=== PATIENT | female | born 2005 | race Caucasian/White ===

== ENCOUNTER 2023-12-19 16:07 | Inpatient (IN) ==
--- NOTE | 2023-12-19 16:11 | ED Triage Note ---
Date of Service December 19, 2023 Provider in Triage Author: Willard Canales History of Present Illness This patient was briefly evaluated while in triage. An abbreviated physical exam was performed. This patient is a 17-year-old Female who presents to the ED for evaluation of seen here 3 days ago for RLQ pain and found to have a distal right ureteral stone nausea and vomiting since being in the ED - throwing up anything she eats/drinks and medications still having intermittent right flank pain Physical Exam GENERAL: NAD CARDIOVASCULAR: RRR RESPIRATORY: CTA ABDOMEN: BS x 4. Nontender to palpation. Initial orders for labs and / or imaging were placed and patient was placed in the waiting area until a bed is available. Please see further documentation for the full ED course. MDM / Impression Impression Impression: Intractable nausea and vomiting, Hydronephrosis, right, Calculus, ureteral, Acute dehydration
[2023-12-19] MEDS: ONDANSETRON INJ 2 MG/ML 2 ML VIAL IV STA (16:18)
[2023-12-19] MEDS: SODIUM CHLORIDE 0.9% 1,000 ML IV SCH (16:18)
[2023-12-19 16:41] LABS: Basophils # (auto) 0.04 K/uL (0.00-0.20); Basophils % (auto) 0.3 %; Eosinophils # (auto) 0.03 K/uL (0.00-0.50); Eosinophils % (auto) 0.3 %; Hematocrit (blood only) 41.6 % (37.0-47.0); Hemoglobin 14.3 g/dl (12.0-16.0); Immature Granulocytes # (auto) 0.04 K/uL (0.01-0.20); Immature Granulocytes % (auto) 0.3 %; Lymphocytes # (auto) 1.09 K/uL (1.20-3.40); Lymphocytes % (auto) 9.3 %; Mean Corpuscular Hgb Conc 34.4 g/dL (32.0-36.0); Mean Corpuscular Volume 87.2 fL (80.0-100.0); Mean Platelet Volume 9.3 fL (9.4-12.4); Neutrophils # (auto) 9.83 K/uL (1.40-6.50); Neutrophils % (auto) 83.8 %; Platelet Count 270 K/uL (130-400); RDW Coefficient of Variation 11.7 % (11.5-14.5); RDW Standard Deviation 37.8 fL (36.4-46.3); Red Blood Count 4.77 M/uL (4.20-5.40); White Blood Count 11.73 K/ul (4.8-10.8)
[2023-12-19 16:46] LABS: Albumin Globulin Ratio 1.5 (0.9-2); Albumin Level 4.9 gm/dl (3.4-5.0); BUN Creatinine Ratio 15.7 (10-20); Bilirubin,Total 0.6 mg/dl (0.2-1.0); Calcium 9.9 mg/dl (8.6-10.3); Creatinine Clr Calc Pharmacy 56.8 ml/min; Globulin 3.2 gm/dl (2.5-4.0); Total Protein 8.1 gm/dl (6.0-8.3)
--- NOTE | 2023-12-19 17:09 | XRay Report ---
INDICATION: History of renal calculi. TECHNIQUE: 3 views of the abdomen. COMPARISON: No relevant priors. FINDINGS: No dilated loops of bowel. Evaluation for free air limited by supine technique. Multiple right renal calculi measuring up to 0.7 cm. Left kidney is obscured by bowel gas. No acute osseous or soft tissue abnormality. IMPRESSION: Multiple right renal calculi measuring up to 0.7 cm. Left kidney is obscured by bowel gas. Electronically signed by Alfredo Jarrett 12-19-2023 5:08 PM
[2023-12-19 17:13] LABS: Pregnancy Test, Serum Negative (Negative)
--- NOTE | 2023-12-19 17:49 | Ultrasound Report ---
INDICATION: Abdominal pain. History kidney stones/right ureteral stone. COMPARISON: Radiograph from the same day. TECHNIQUE: Real-time sonographic examination of the kidneys and urinary bladder was performed in longitudinal and transverse dimensions. FINDINGS: Kidneys: Right kidney measures 11.5 x 5 cm. Mild hydronephrosis. No shadowing renal calculus seen on this ultrasound. No solid mass or cyst. Left kidney measures 9.7 x 5 cm. Negative for solid renal mass, cyst, hydronephrosis or shadowing calculus. Bladder: No stones or mural masses. Right ureteral jet not visualized, left is seen. IMPRESSION: Mild right hydronephrosis. Electronically signed by Alfredo Jarrett 12-19-2023 5:49 PM
[2023-12-19] MEDS: KETOROLAC 30 MG/ML VIAL IV STA (18:00)
[2023-12-19 18:24] LABS: Appearance Urine Clear (Clear); Bacteria Urine Automated None Seen (None Seen); Bilirubin Urine Negative (Negative); Blood Urine Negative (Negative); Cast Urine Automated 0-2 /lpf (0-2); Color Urine Yellow; Glucose Urine UA Negative (Negative); Ketones Urine 4+ (Negative); Leukocyte Esterase Urine Negative (Negative); Nitrite Urine Negative (Negative); Protein Urine 1+ (Negative); RBC Urine Automated 0-2 /hpf (0-2); Specific Gravity Urine 1.034 (1.000-1.030); Urobilinogen Urine Negative (Negative); WBC Urine Automated 0-5 /hpf (0-5)
--- NOTE | 2023-12-19 19:46 | Emergency Department Note ---
Impression & Plan Intractable nausea and vomiting, Hydronephrosis, right, Calculus, ureteral, Acute dehydration ED Provider Note HISTORY OF PRESENT ILLNESS: Patient is a 17-year-old female presenting with right sided abdominal pain and right flank pain. Patient was diagnosed with a kidney stone on Tuesday. Reports that since being discharged she has been unable to tolerate anything by mouth. Reports that she has been vomiting up the medications that she was prescribed and she has been unable to keep down any fluids. She states her pain in her right lower quadrant and right flank are significantly worse. Denies any dysuria. Denies any measured fevers at home. She reports multiple episodes of vomiting and nausea but denies any diarrhea. ROS: as above PHYSICAL EXAM: Constitutional: Patient appears in no acute distress. HENT: Head: Normocephalic and atraumatic. Eyes: EOMI, PERRL Mouth/Throat: Mucous membranes moist. Neck: Trachea midline. Neck supple. Cardiovascular: RRR, No murmurs, rubs or gallops. Intact distal pulses. Pulmonary/Chest: No respiratory distress. Breath sounds clear and equal bilaterally. No wheezes or rales. Abdominal: Abdomen soft, no tenderness, rebound or guarding. Musculoskeletal: No edema, tenderness or deformity noted. Skin: Warm and dry. No rash, erythema, pallor or cyanosis Psychiatric: Appropriate mood and affect for situation. Neurological: Alert and keenly responsive. CN II-XII grossly intact, moving all extremities equally and fully. MDM: - Vitals signs stable - History obtained via patient. History as above. - Chronic conditions affecting care: None - Differential diagnoses include, but are not limited to: appendicitis; UTI; ureteral stone; pyelonephritis; electrolyte abnormality dehydration - Order placed for continuous cardiac monitoring. At this time, monitor showed rate of 76 bpm with normal sinus rhythm, per my interpretation. - External medical records reviewed. CT imaging obtained during patient's emergency department visit on 12/16/2023 was reviewed. Patient had a stone in her distal right ureter measuring about 4 mm in size. Was noted to have some right sided hydronephrosis and hydroureter secondary to the stone. - Patient unfortunately was out in the waiting room for a number of hours secondary to ER overcrowding. IV access and imaging was initiated while out in the waiting room via triage protocols. - Laboratory workup interpreted by myself showed leukocytosis (WBC 11.73) with neutrophil predominance; slight hyponatremia (Na 134); elevated anion gap (14); normal lipase; negative hCG - UA negative for infection. Noted to have ketonuria - KUB of the abdomen ordered through triage protocols showed multiple right renal calculi measuring up to 0.7 cm. Left kidney is obscured by bowel gas. - US renal showed right-sided hydronephrosis. - Patient given 1L NS, 30 mg IV toradol and 4 mg IV zofran. - Discussed results with patient and her mother via the phone. Mother is upset with the patient's long wait in the emergency department and is demanding urological consultation and surgery. Did discuss that given the late hour and the patient not meeting emergent criteria for surgery, urology can be consulted and they can deem if surgery is appropriate during the patient's admission for her dehydration. Offered admission for pain management and hydration, and patient and patient's mother are upset with this as well, but they state that the patient cannot go home. Mother is also upset that the patient was "not offered anything to drink in her 4 hours in the ER." I did discuss that the patient came in with the complaint of vomiting and abdominal pain and it is not standard of care to allow the patient to eat or drink when presenting with those complaints in case the patient does require emergent surgery. - Discussed case with urology PA promotions associate, Luc De Dios PA-C, who plans to come evaluate the patient. - Discussion was had with manager case management about patient's case and need for admission - Hospitalist consulted for admission - [facility] ASSESSMENT AND PLAN: Diagnosis: intractable nausea and vomiting; acute dehydration; right hydronephrosis; ureteral calculus Plan: admit Past Med/Surg History Problem List (Updated 12/19/23 @ 21:06 by Shannan Reed MD) Acute dehydration (Acute) Calculus, ureteral (Acute) Hydronephrosis, right (Acute) Intractable nausea and vomiting (Acute) Kidney stones (Acute) Social History Smoking Status: Never smoker Tobacco Type: E-cigarettes / Vaping Feels Safe at Home: Yes Allergies Allergies Allergy/AdvReac Type Severity Reaction Status Date / Time No Known Allergies Allergy Verified 12/16/23 02:55 Home Meds Previous Rx's Medication Instructions Recorded ondansetron 4 mg disintegrating 4 mg PO Q6H PRN nausea and 12/16/23 tablet vomiting #15 tabs oxycodone 5 mg tablet 5 mg PO Q6H PRN pain #10 tabs 12/16/23 tamsulosin 0.4 mg capsule (Flomax) 0.4 mg PO DAILY #10 caps 12/16/23 Results & Data (ED) Vital Signs Vital Signs - 24 hr 12/19/23 16:10 12/19/23 18:55 12/19/23 20:00 Temperature 36.8 C Temperature Source Temporal Artery Scan Pulse Rate 90 Pulse Rate [Right Finger] 71 76 Respiratory Rate 20 18 18 Respiratory Effort / Characteristics Non-Labored Spontaneous Non-Labored Non-Labored Spontaneous Respiratory Depth Normal Normal Normal Respiratory Pattern Regular Blood Pressure 119/87 Blood Pressure [Right Arm] 148/94 H Blood Pressure Mean 97 Blood Pressure Mean [Right Arm] 112 Blood Pressure Position Sitting Blood Pressure Position [Right Arm] Lying Pulse Oximetry 98 100 100 Oxygen Delivery Method Room Air Room Air Room Air Sepsis Recent Fever Within 48 Hours No Sepsis New/Unexplained Change in Mental Status N/A Sepsis Action Taken by Nursing No Action Required Laboratory Data 12/19/23 16:17 12/19/23 16:17 Lab Results 12/19/23 12/19/23 Range/Units 16:17 18:06 WBC 11.73 H (4.8-10.8) K/ul RBC 4.77 (4.20-5.40) M/uL Hgb 14.3 (12.0-16.0) g/dl Hct 41.6 (37.0-47.0) % MCV 87.2 (80.0-100.0) fL MCH 30.0 (25.0-34.0) pg MCHC 34.4 (32.0-36.0) g/dL RDW Std Deviation 37.8 (36.4-46.3) fL RDW Coeff of Abdoulaye 11.7 (11.5-14.5) % Plt Count 270 (130-400) K/uL MPV 9.3 L (9.4-12.4) fL Immature Gran % (Auto) 0.3 % Neut % (Auto) 83.8 % Lymph % (Auto) 9.3 % [place] % (Auto) 6.0 % Eos % (Auto) 0.3 % Baso % (Auto) 0.3 % Neut # (Auto) 9.83 H (1.40-6.50) K/uL Lymph # (Auto) 1.09 L (1.20-3.40) K/uL [place] # (Auto) 0.70 H (0.11-0.59) K/uL Eos # (Auto) 0.03 (0.00-0.50) K/uL Baso # (Auto) 0.04 (0.00-0.20) K/uL Immature Gran # (Auto) 0.04 (0.01-0.20) K/uL Sodium 134 L (136-145) mmol/L Potassium 4.0 (3.5-5.1) mmol/L Chloride 98 (98-107) mmol/L Carbon Dioxide 22 (21-32) mmol/L Anion Gap 14 H (3-11) BUN 18 (6-23) mg/dl Creatinine 1.15 (0.6-1.2) mg/dl Est Cr Clr Drug Dosing 56.8 ml/min eGFR 70.38 BUN/Creatinine Ratio 15.7 (10-20) Glucose 98 (70-99(Fasting)) mg/dl Calcium 9.9 (8.6-10.3) mg/dl Total Bilirubin 0.6 (0.2-1.0) mg/dl AST 11 L (13-39) U/L ALT 4 L (7-52) U/L Alkaline Phosphatase 45 (34-104) U/L Total Protein 8.1 (6.0-8.3) gm/dl Albumin 4.9 (3.4-5.0) gm/dl Globulin 3.2 (2.5-4.0) gm/dl Albumin/Globulin Ratio 1.5 (0.9-2) Lipase 14 (11-82) U/L HCG, Qual Negative (Negative) Urine Color Yellow Urine Appearance Clear (Clear) Urine pH 6.0 (4.5-7.5) Ur Specific [place] 1.034 H (1.000-1.030) Urine Protein 1+ H (Negative) Urine Glucose (UA) Negative (Negative) Urine Ketones 4+ H (Negative) Urine Blood Negative (Negative) Urine Nitrite Negative (Negative) Urine Bilirubin Negative (Negative) Urine Urobilinogen Negative (Negative) Ur Leukocyte Esterase Negative (Negative) Urine WBC (Auto) 0-5 (0-5) /hpf Urine RBC (Auto) 0-2 (0-2) /hpf U Hyaline Cast (Auto) 0-2 (0-2) /lpf U Epithel Cells (Auto) 3-5 H (0-2) /hpf Urine Bacteria (Auto) None Seen (None Seen) Administered Medications Discontinued Medications Sodium Chloride (Nss) 1,000 mls @ 999 mls/hr IV .Q1H1M CRESENCIO Stop: 12/19/23 17:12 Last Infusion: 12/19/23 17:57 Dose: Infused Documented By: Admin: 12/19/23 16:18 Dose: 999 mls/hr Documented By: YENIFER Ketorolac Tromethamine (Ketorolac 30 Mg/Ml Vial) 30 mg IV NOW STA Stop: 12/19/23 17:24 Last Admin: 12/19/23 18:00 Dose: 30 mg Documented By: CARLITOS Ondansetron HCl (Ondansetron Inj 2 Mg/Ml 2 Ml Vial) 4 mg IV NOW STA Stop: 12/19/23 16:13 Last Admin: 12/19/23 16:18 Dose: 4 mg Documented By: YENIFER Imaging Data Radiologist's Impression: KUB X-Ray 12/19/23 16:11 INDICATION: History of renal calculi. TECHNIQUE: 3 views of the abdomen. COMPARISON: No relevant priors. FINDINGS: No dilated loops of bowel. Evaluation for free air limited by supine technique. Multiple right renal calculi measuring up to 0.7 cm. Left kidney is obscured by bowel gas. No acute osseous or soft tissue abnormality. IMPRESSION: Multiple right renal calculi measuring up to 0.7 cm. Left kidney is obscured by bowel gas. Electronically signed by Alfredo Jarrett 12-19-2023 5:08 PM Renal Ultrasound 12/19/23 16:11 INDICATION: Abdominal pain. History kidney stones/right ureteral stone. COMPARISON: Radiograph from the same day. TECHNIQUE: Real-time sonographic examination of the kidneys and urinary bladder was performed in longitudinal and transverse dimensions. FINDINGS: Kidneys: Right kidney measures 11.5 x 5 cm. Mild hydronephrosis. No shadowing renal calculus seen on this ultrasound. No solid mass or cyst. Left kidney measures 9.7 x 5 cm. Negative for solid renal mass, cyst, hydronephrosis or shadowing calculus. Bladder: No stones or mural masses. Right ureteral jet not visualized, left is seen. IMPRESSION: Mild right hydronephrosis. Electronically signed by Alfredo Jarrett 12-19-2023 5:49 PM Discharge Plan Visit Data Chief Complaint: Vomiting Stated Complaint: VOMITING, NOT EATEN, HYDRATED ED Provider: Shannan Reed Discharge Problem: Intractable nausea and vomiting, Hydronephrosis, right, Calculus, ureteral, Acute dehydration Forms Stand Alone Forms: [facility] Prescriptions Prescriptions: No Action tamsulosin [Flomax] 0.4 mg capsule 0.4 mg PO DAILY Qty: 10 0RF ondansetron 4 mg tablet,disintegrating 4 mg PO Q6H PRN (Reason: nausea and vomiting) Qty: 15 0RF oxycodone 5 mg tablet 5 mg PO Q6H PRN (Reason: pain) Qty: 10 0RF Rx Instructions: Initial Treatment Referrals Referrals: [facility] [Primary Care Provider] -
--- NOTE | 2023-12-19 21:34 | Urology Consultation ---
Date of Consultation December 19, 2023 Assessment & Plan (1) Kidney stones: I discussed with the treating emergency room physician the patient is being admitted on the hospitalist service. From a urologic perspective we recommend the following: I discussed with the patient that by CT scan she has a 4 mm kidney stone which has a high likelihood of passing on its own Will provide her with analgesics Will provide her with antiemetics Would recommend continuing Flomax for expulsive therapy Hydrate the patient as able Feel be acceptable for patient have clear liquids this evening but she should be made n.p.o. after midnight tonight She will be reevaluated by our urology dayshift team on 12/20/2023 and a determination was made if she would require cystoscopic intervention. I did discuss with the patient that if she does undergo cystoscopy the exact procedure will be dependent on the urologist performed procedure and may include simply placing a ureteral stent, laser lithotripsy, or basket extraction of kidney stonesagain I did say that this would be dependent on the urologist performing the procedure I would also depend on factors such as the size, shape, and location of the kidney stone At the present time the patient is normotensive not tachycardic or fever and therefore I feel conservative measures are warranted at this time Additional recommendations be forthcoming based on her clinical course as unfolds Per the patient's request I did contact her mother Kandi at [phone] and updated her on her daughter's condition History of Present Illness Reason for Consultation: Nephrolithiasis History of Present Illness This is a 17-year-old female who presented to the emergency department secondary to right flank pain. Patient notes that her pain initially began on 12/16/2023 so she presented to the emergency department. During this visit to the emergency department the patient had labs and imaging. A CT scan of the abdomen pelvis showed the patient had a 4 mm kidney stone in the right lower ureter resulting in some right hydronephrosis. Labs at that time included CBC were white blood cell count was elevated 15.0. Hemoglobin was normal. Her platelet count was normal. Chemistry profile showed sodium was 138 with a potassium of 3.1. Her BUN and creatinine were both normal. Urinalysis showed trace leukocyte Estrace but was otherwise not indicative of infection. The patient was prescribed antiemetics, analgesics, as well as Flomax for expulsive therapy and was discharged home. Patient notes that since being discharged home she has had intermittent right flank pain with some radiation to her abdomen. She has had associated nausea and vomiting. She has been unable to keep any of her medications down therefore her pain medication she feels has been ineffective. She denies any fevers, shakes, or chills. She denies any dysuria or hematuria but does note that her urinary amount is less than usual. Because of her ongoing symptoms she presented to the emergency department. Today in the emergency department she had labs and imaging which I independent reviewed. Renal ultrasound showed mild right hydronephrosis. She did have a KUB that showed a 0.7 cm right sided kidney stone. Labs include a CBC were white blood cell count was elevated 11.7. Hemoglobin and hematocrit as well as the platelet count were normal. Chemistry profile showed sodium was 134 with a normal potassium. BUN and creatinine were both normal. The test was noted to be negative. A urinalysis was not indicative of infection. At the time of my interview she was resting comfortably in bed and she was in no distress. Concerning past medical history she denies medical problems Concerning past surgical history she does not report any surgical problems Concerning social history she says she does not smoke Allergies Allergy/AdvReac Type Severity Reaction Status Date / Time No Known Allergies Allergy Verified 12/16/23 02:55 Home Medications Medication Instructions Recorded Confirmed Type ondansetron 4 mg disintegrating 4 mg PO Q6H PRN nausea and 12/16/23 Rx tablet vomiting #15 tabs oxycodone 5 mg tablet 5 mg PO Q6H PRN pain #10 tabs 12/16/23 Rx tamsulosin 0.4 mg capsule (Flomax) 0.4 mg PO DAILY #10 caps 12/16/23 Rx Patient History Social History Smoking Status: Never smoker Tobacco Type: E-cigarettes / Vaping Feels Safe at Home: Yes Review of Systems Review of Systems: All systems reviewed & are unremarkable except as noted in HPI & below Physical Exam Constitutional: WD/WN, vitals as above Eyes: no conjunctival abnormality ENMT: Ears: no hearing impairment and no external ear abnormality Mouth: no oropharynx abnormality Neck: trachea midline Respiratory: normal respiratory effort; no respiratory distress and no labored breathing Cardiovascular: Rate/Rhythm: regular rate and regular rhythm Gastrointestinal (Abdomen): Abdomen is soft and nondistended. It is nonrigid. There is no pain with palpation. There is no rebound tenderness or guarding. Musculoskeletal: No calf tenderness Skin: no rashes Neurologic: moves all extremities Psychiatric: A+Ox3, euthymic affect Results & Data Vital Signs (Past 12 Hours) Vital Signs Temp Pulse Pulse Resp BP BP Pulse Ox 12/19/23 20:00 76 18 100 12/19/23 18:55 71 18 148/94 H 100 12/19/23 16:10 36.8 C 90 20 119/87 98 O2 Del Method 12/19/23 20:00 Room Air 12/19/23 18:55 Room Air 12/19/23 16:10 Room Air PG Care Time/CCT Total # of Minutes Spent Total Time Spent with Patient: Total time spent is greater than 50% in coordination of care (as documented) at patient's floor/unit and/or counseling patient: Coding Level of Care Code 24277 IN/OBS CONSULT LVL 5,80M Diagnoses Kidney stones N20.0
--- NOTE | 2023-12-19 22:28 | History & Physical Report ---
Date of Service December 19, 2023 Assessment & Plan (1) Calculus, ureteral: Plan: 17yo female with recently diagnosed renal stone, ongoing nausea with inability to take her PO medications returns with ongoing flank pain. Noted to have multiple renal calculi measuring up to 0.7cm. -Admit to medical -Maintain NPO -Pain management with Tylenol, Morphine PRN -Flomax 0.4mg po daily -Zofran PRN -LR at 125mL/hr x 2 liters -Urology Consultation appreciated History of Present Illness Chief Complaint: flank pain Primary Care Provider: [facility] Abena Anthony is a 17yo female with no significant past medical surgery presenting with right flank pain. Patient was seen in the ER on 12/16/23 and f ound to have a 4mm right lower ureteral calculus. She was discharged from the ER with instruction to take Ibuprofen or Tylenol PRN as well as Oxycodone and Flomax. Patient has had significant nausea since returning home from the ER with multiple episodes of vomiting. She has been unable to take her oral medications. Patient with ongoing right flank pain as well as ongoing nausea and chills. She also reports some decreased UOP. Allergies Allergy/AdvReac Type Severity Reaction Status Date / Time No Known Allergies Allergy Verified 12/16/23 02:55 Home Medications Medication Instructions Recorded Confirmed Type ondansetron 4 mg disintegrating 4 mg PO Q6H PRN nausea and 12/16/23 Rx tablet vomiting #15 tabs oxycodone 5 mg tablet 5 mg PO Q6H PRN pain #10 tabs 12/16/23 Rx tamsulosin 0.4 mg capsule (Flomax) 0.4 mg PO DAILY #10 caps 12/16/23 Rx Past Med/Surg History Problem List Acute dehydration (Acute) Calculus, ureteral (Acute) Hydronephrosis, right (Acute) Intractable nausea and vomiting (Acute) Kidney stones (Acute) Social History Smoking Status: Never smoker Tobacco Type: E-cigarettes / Vaping Second Hand Exposure: No; Do You Dip or Chew Tobacco: No; Hx Alcohol Use: Yes Alcohol type: hard liquor Hx Substance Use: No Preferred Language: Maltese Communication Ability: Effective Vocational Technical Education Director Required: No Beliefs That Will Affect Care: None Current Living Situation: Parent Current Living Situation Comment: [employer]. Lives in school when open. Other Information That Helps Us Care for You: No Feels Safe at Home: Yes Safety Concerns: Feels Safe At This Time Assistive Devices: None Review of Systems Review of Systems: All systems reviewed & are unremarkable except as noted in HPI & below Physical Exam Physical Exam: General: patient resting comfortably, NAD, non-toxic in appearance, AA&O x 4 Skin: warm, dry, intact, no rashes or lesions HEENT: NC/AT, PERRL, EOMI, anicteric sclera, conjunctiva without injection, external ear normal to inspection and nontender, nares patent, moist mucus membranes, dentition intact, no oropharyngeal lesions, neck supple, trachea midline, no LAD, no thyromegaly, no JVD Heart: +S1/S2, regular, no m/r/g Lungs: equal air entry bilaterally, no rales/rhonchi/wheezes Abd: +BS, soft, NT/ND, no masses/organomegaly/ascites, right flank pain/CVA tenderness reported from ER - not retensted Ext: warm, 2+ pulses in UE/LE bilaterally, no clubbing/cyanosis or edema Neuro: nonfocal, patient AA&O x 4, speech intact, no facial droop, moving all extremities on command with equal strength 5/5 Results & Data Results & Data Vital Signs (Past 12 Hours) Vital Signs Temp Pulse Pulse Resp BP BP Pulse Ox 12/19/23 20:00 76 18 100 12/19/23 18:55 71 18 148/94 H 100 12/19/23 16:10 36.8 C 90 20 119/87 98 O2 Del Method 12/19/23 20:00 Room Air 12/19/23 18:55 Room Air 12/19/23 16:10 Room Air Laboratory Results Laboratory Results WBC 11.73 K/ul (4.8-10.8) H 12/19/23 16:17 RBC 4.77 M/uL (4.20-5.40) 12/19/23 16:17 Hgb 14.3 g/dl (12.0-16.0) 12/19/23 16:17 Hct 41.6 % (37.0-47.0) 12/19/23 16:17 MCV 87.2 fL (80.0-100.0) 12/19/23 16:17 MCH 30.0 pg (25.0-34.0) 12/19/23 16:17 MCHC 34.4 g/dL (32.0-36.0) 12/19/23 16:17 RDW Std Deviation 37.8 fL (36.4-46.3) 12/19/23 16:17 RDW Coeff of Abdoulaye 11.7 % (11.5-14.5) 12/19/23 16:17 Plt Count 270 K/uL (130-400) 12/19/23 16:17 MPV 9.3 fL (9.4-12.4) L 12/19/23 16:17 Immature Gran % (Auto) 0.3 % 12/19/23 16:17 Neut % (Auto) 83.8 % 12/19/23 16:17 Lymph % (Auto) 9.3 % 12/19/23 16:17 [place] % (Auto) 6.0 % 12/19/23 16:17 Eos % (Auto) 0.3 % 12/19/23 16:17 Baso % (Auto) 0.3 % 12/19/23 16:17 Neut # (Auto) 9.83 K/uL (1.40-6.50) H 12/19/23 16:17 Lymph # (Auto) 1.09 K/uL (1.20-3.40) L 12/19/23 16:17 [place] # (Auto) 0.70 K/uL (0.11-0.59) H 12/19/23 16:17 Eos # (Auto) 0.03 K/uL (0.00-0.50) 12/19/23 16:17 Baso # (Auto) 0.04 K/uL (0.00-0.20) 12/19/23 16:17 Immature Gran # (Auto) 0.04 K/uL (0.01-0.20) 12/19/23 16:17 Sodium 134 mmol/L (136-145) L 12/19/23 16:17 Potassium 4.0 mmol/L (3.5-5.1) 12/19/23 16:17 Chloride 98 mmol/L (98-107) 12/19/23 16:17 Carbon Dioxide 22 mmol/L (21-32) 12/19/23 16:17 Anion Gap 14 (3-11) H 12/19/23 16:17 BUN 18 mg/dl (6-23) 12/19/23 16:17 Creatinine 1.15 mg/dl (0.6-1.2) 12/19/23 16:17 Est Cr Clr Drug Dosing 56.8 ml/min 12/19/23 16:17 eGFR 70.38 12/19/23 16:17 BUN/Creatinine Ratio 15.7 (10-20) 12/19/23 16:17 Glucose 98 mg/dl (70-99(Fasting)) 12/19/23 16:17 Calcium 9.9 mg/dl (8.6-10.3) 12/19/23 16:17 Total Bilirubin 0.6 mg/dl (0.2-1.0) 12/19/23 16:17 AST 11 U/L (13-39) L 12/19/23 16:17 ALT 4 U/L (7-52) L 12/19/23 16:17 Alkaline Phosphatase 45 U/L (34-104) 12/19/23 16:17 Total Protein 8.1 gm/dl (6.0-8.3) 12/19/23 16:17 Albumin 4.9 gm/dl (3.4-5.0) 12/19/23 16:17 Globulin 3.2 gm/dl (2.5-4.0) 12/19/23 16:17 Albumin/Globulin Ratio 1.5 (0.9-2) 12/19/23 16:17 Lipase 14 U/L (11-82) 12/19/23 16:17 HCG, Qual Negative (Negative) 12/19/23 16:17 Urine Color Yellow 12/19/23 18:06 Urine Appearance Clear (Clear) 12/19/23 18:06 Urine pH 6.0 (4.5-7.5) 12/19/23 18:06 Ur Specific [place] 1.034 (1.000-1.030) H 12/19/23 18:06 Urine Protein 1+ (Negative) H 12/19/23 18:06 Urine Glucose (UA) Negative (Negative) 12/19/23 18:06 Urine Ketones 4+ (Negative) H 12/19/23 18:06 Urine Blood Negative (Negative) 12/19/23 18:06 Urine Nitrite Negative (Negative) 12/19/23 18:06 Urine Bilirubin Negative (Negative) 12/19/23 18:06 Urine Urobilinogen Negative (Negative) 12/19/23 18:06 Ur Leukocyte Esterase Negative (Negative) 12/19/23 18:06 Urine WBC (Auto) 0-5 /hpf (0-5) 12/19/23 18:06 Urine RBC (Auto) 0-2 /hpf (0-2) 12/19/23 18:06 U Hyaline Cast (Auto) 0-2 /lpf (0-2) 12/19/23 18:06 U Epithel Cells (Auto) 3-5 /hpf (0-2) H 12/19/23 18:06 Urine Bacteria (Auto) None Seen (None Seen) 12/19/23 18:06 Impressions KUB X-Ray 12/19/23 16:11 INDICATION: History of renal calculi. TECHNIQUE: 3 views of the abdomen. COMPARISON: No relevant priors. FINDINGS: No dilated loops of bowel. Evaluation for free air limited by supine technique. Multiple right renal calculi measuring up to 0.7 cm. Left kidney is obscured by bowel gas. No acute osseous or soft tissue abnormality. IMPRESSION: Multiple right renal calculi measuring up to 0.7 cm. Left kidney is obscured by bowel gas. Electronically signed by Alfredo Jarrett 12-19-2023 5:08 PM Renal Ultrasound 12/19/23 16:11 INDICATION: Abdominal pain. History kidney stones/right ureteral stone. COMPARISON: Radiograph from the same day. TECHNIQUE: Real-time sonographic examination of the kidneys and urinary bladder was performed in longitudinal and transverse dimensions. FINDINGS: Kidneys: Right kidney measures 11.5 x 5 cm. Mild hydronephrosis. No shadowing renal calculus seen on this ultrasound. No solid mass or cyst. Left kidney measures 9.7 x 5 cm. Negative for solid renal mass, cyst, hydronephrosis or shadowing calculus. Bladder: No stones or mural masses. Right ureteral jet not visualized, left is seen. IMPRESSION: Mild right hydronephrosis. Electronically signed by Alfredo Jarrett 12-19-2023 5:49 PM PG Care Time/CCT Total # of Minutes Spent Total Time Spent with Patient: Total time spent is greater than 50% in coordination of care (as documented) at patient's floor/unit and/or counseling patient: Coding Level of Care Code 53127 INT INP/OBS CARE 2/55MIN Diagnoses Calculus, ureteral N20.1
[2023-12-20] MEDS ORDERED: ONDANSETRON INJ 2 MG/ML 2 ML VIAL IV PRN (00:23)
[2023-12-20] MEDS ORDERED: MoRPHine SULFATE 4 MG/ML 1 ML CARP\\VIAL IV PRN (00:23)
[2023-12-20] MEDS: LACTATED RINGER'S 1,000 ML IV SCH (01:10)
[2023-12-20] MEDS ORDERED: ACETAMINOPHEN 325 MG TAB PO PRN (04:03)
[2023-12-20] MEDS: MoRPHine SULFATE 2 MG/ML CARP IV PRN (07:39)
[2023-12-20 07:55] LABS: Hematocrit (blood only) 31.9 % (37.0-47.0); Hemoglobin 11.1 g/dl (12.0-16.0); Mean Corpuscular Hemoglobin 30.7 pg (25.0-34.0); Mean Corpuscular Hgb Conc 34.8 g/dL (32.0-36.0); Mean Corpuscular Volume 88.1 fL (80.0-100.0); Mean Platelet Volume 9.4 fL (9.4-12.4); Platelet Count 188 K/uL (130-400); RDW Coefficient of Variation 11.8 % (11.5-14.5); RDW Standard Deviation 37.9 fL (36.4-46.3); Red Blood Count 3.62 M/uL (4.20-5.40); White Blood Count 6.97 K/ul (4.8-10.8)
[2023-12-20 08:11] LABS: BUN Creatinine Ratio 14.2 (10-20); Calcium 8.7 mg/dl (8.6-10.3); Creatinine Clr Calc Pharmacy 60.9 ml/min; Potassium 3.8 mmol/L (3.5-5.1)
[2023-12-20] MEDS: TAMSULOSIN HCL 0.4 MG CAP PO SCH (08:51)
--- NOTE | 2023-12-20 10:35 | Urology Progress Note ---
Date of Service December 20, 2023 Assessment & Plan (1) Calculus, ureteral: (2) Hydronephrosis, right: Plan 17 yo female admitted with severe pain secondary to an obstructing 4mm right ureteral stone - Still with right flank pain this morning, denies noticeable stone passage - Afebrile with stable vitals - Labs -WBC 6.97, hemoglobin 11.1, creatinine 1.06 - UA not suggestive of infection - We discussed options for acute stone management. Discussed cystoscopy, stent placement, possible stone treatment. Ureteral stents were discussed as well as postoperative issues and pain management. She is aware a second procedure may be needed. Expected clinical course reviewed. Risk and benefits were discussed. All questions were answered. - We also discussed option for continued trial of passage with max expulsion therapy. Stone passage rates given size and location were reviewed. - She would like to proceed with cystoscopy, right retrograde pyelogram, right ureteral stent placement, possible ureteroscopy, laser lithotripsy/stone treatment depending on findings. - Risks and benefits to be reviewed with patient by Dr. Wyatt - Keep NPO - Will cover with IV Ancef preoperatively - Urology will follow Admission and Anticipated Discharge Date Admission Date: December 19, 2023 Subjective Pt seen at bedside this AM Awake and resting in bed No acute distress Denies noticeable stone passage Still with right sided pain, managing with medication Denies f/c/n/v Has been NPO Review of Systems Constitutional: as per Subjective / HPI Genitourinary: as per Subjective / HPI Physical Exam Constitutional: no acute distress Respiratory: no respiratory distress and no labored breathing Neurologic: moves all extremities and awake Psychiatric: A+Ox3, euthymic affect Results & Data Vital Signs (Past 12 Hours) Vital Signs Temp Pulse Pulse Resp BP BP Pulse Ox 12/20/23 07:35 36.7 C 66 14 101/70 99 12/20/23 00:00 36.8 C 66 18 113/68 99 12/20/23 00:00 36.8 C 66 18 113/68 99 12/19/23 23:47 37.0 C 12/19/23 22:00 70 18 98/53 L 99 O2 Del Method 12/20/23 07:35 Room Air 12/20/23 00:00 Room Air 12/20/23 00:00 Room Air 12/19/23 23:47 Room Air 12/19/23 22:00 Room Air PG Care Time/CCT Total # of Minutes Spent Total Time Spent with Patient: Total time spent is greater than 50% in coordination of care (as documented) at patient's floor/unit and/or counseling patient: Coding Level of Care Code 39621 SUB INP/OBS CARE 2/35MIN Diagnoses Calculus, ureteral N20.1 Hydronephrosis, right N13.30
[2023-12-20] MEDS: ceFAZolin 2,000 MG/15 ML IV PUSH IV ONE (14:40)
[2023-12-20] MEDS ORDERED: ePHEDrine sulfate 50 MG/ML AMP IV PRN (14:50)
[2023-12-20] MEDS ORDERED: HYDROmorphone INJ 2 MG/ML SYR/VIAL IV PRN (14:50)
[2023-12-20] MEDS ORDERED: ATROPINE SULFATE 0.1 MG/ML 10ML SYR IV PRN (14:50)
--- NOTE | 2023-12-20 14:50 | Anesthesiology Consultation ---
Date of Service December 20, 2023 Assessment & Plan Chart Review Chart Review: Acceptable Risk for Surgery Consults Requested none ASA ASA2 Proposed Anesthesia Anesthesia Type: General Risk / Benefits Reviewed With: PT / POA / Parent / Guardian, Accepts Plan and Informed Consent Obtained History Surgery Operation Date: 12/20/23 09:30 Proposed Procedures p Cystoscopy, Right Retrograde Pyelogram, Right Stent Placement, Possible Ureteroscopy, Laser Lithotripsy - Toribio Wyatt MD Height/Weight Height: 5 ft 4 in Weight: 45.2 kg Allergies Allergy/AdvReac Type Severity Reaction Status Date / Time No Known Allergies Allergy Verified 12/16/23 02:55 Medications Home Medications Medication Instructions Recorded Confirmed Last Taken ondansetron 4 mg disintegrating 4 mg PO Q6H PRN nausea and 12/16/23 Unknown tablet vomiting #15 tabs oxycodone 5 mg tablet 5 mg PO Q6H PRN pain #10 tabs 12/16/23 Unknown tamsulosin 0.4 mg capsule (Flomax) 0.4 mg PO DAILY #10 caps 12/16/23 Unknown Active Medications Generic Name Dose Route Start Last Admin Trade Name Freq PRN Reason Stop Dose Admin Lactated Ringer's 1,000 mls @ 125 mls/hr 12/20/23 00:23 12/20/23 08:51 Lr IV 12/20/23 16:22 125 mls/hr .Q8H CRESENCIO Administration Morphine Sulfate 2 mg 12/20/23 00:23 12/20/23 13:59 Morphine Sulfate 2 Mg/Ml Carp IV 01/03/24 00:22 2 mg Q3H PRN Administration Pain (1,2,3,4,5) & Pre PT Tamsulosin HCl 0.4 mg 12/20/23 09:00 12/20/23 08:51 Tamsulosin Hcl 0.4 Mg Cap PO 01/19/24 08:59 0.4 mg DAILY CRESENCIO Administration NPO Date Last Intake of Fluids: 12/19/23 Time Last Intake of Fluids: 23:45 Date Last Intake of Solids: 12/18/23 Time Last Intake of Solids: 12:00 Exercise / Class Metabolic Activity II 4-5 Yardwork/Stairs/Walk up hill Past Anesthesia History No Family Hx of Anesthesia Complications History of PONV No Hx of PONV Social History Smoking Status: Never smoker Do You Dip or Chew Tobacco: No Hx Alcohol Use: Yes Alcohol type: hard liquor alcohol intake frequency: holidays/special occasions only Hx Substance Use: No Review of Systems Constitutional: as per Subjective / HPI Eyes: as per Subjective / HPI Ear, Nose, Mouth, Throat: as per Subjective / HPI Respiratory: as per Subjective / HPI Cardiovascular: as per Subjective / HPI Gastrointestinal: as per Subjective / HPI Genitourinary (Female): as per Subjective / HPI Musculoskeletal: as per Subjective / HPI Integumentary: as per Subjective / HPI Neurologic: as per Subjective / HPI Psychiatric: as per Subjective / HPI Endocrine: as per Subjective / HPI Hematologic / Lymphatic: as per Subjective / HPI Allergy / Immunological: as per Subjective / HPI Physical Exam Vital Signs Last Vital Signs Temp 36.6 C 12/20/23 14:30 Pulse 76 12/20/23 14:30 Resp 16 12/20/23 14:30 BP 119/80 12/20/23 14:30 Pulse Ox 100 12/20/23 14:30 O2 Del Method Room Air 12/20/23 14:30 Constitutional no acute distress ENMT Mouth: no dentition abnormality Thyromental Distance: > or= 3.5 Finger Breadths Mallampati Class: I Neck normal visual inspection and trachea midline Respiratory normal respiratory effort Cardiovascular Rate/Rhythm: regular rate Extremities: no edema Chest (Breasts) Chest: no pacemaker Musculoskeletal Extremities: extremities normal to inspection Neurologic moves all extremities Psychiatric Orientation: alert and oriented x 3 Testing Laboratory Results 12/20/23 07:20 12/20/23 07:20 Urine Color Yellow 12/19/23 18:06 Urine Appearance Clear (Clear) 12/19/23 18:06 Urine pH 6.0 (4.5-7.5) 12/19/23 18:06 Ur Specific [place] 1.034 (1.000-1.030) H 12/19/23 18:06 Urine Protein 1+ (Negative) H 12/19/23 18:06 Urine Glucose (UA) Negative (Negative) 12/19/23 18:06 Urine Ketones 4+ (Negative) H 12/19/23 18:06 Urine Nitrite Negative (Negative) 12/19/23 18:06 Ur Leukocyte Esterase Negative (Negative) 12/19/23 18:06 Urine WBC (Auto) 0-5 /hpf (0-5) 12/19/23 18:06 Urine RBC (Auto) 0-2 /hpf (0-2) 12/19/23 18:06 U Hyaline Cast (Auto) 0-2 /lpf (0-2) 12/19/23 18:06 U Epithel Cells (Auto) 3-5 /hpf (0-2) H 12/19/23 18:06 Urine Bacteria (Auto) None Seen (None Seen) 12/19/23 18:06
[2023-12-20] MEDS: SCOPOLAMINE 1 MG/72 HR TDSY PATCH TD SCH (14:55)
[2023-12-20] MEDS ORDERED: fentaNYL citrate PF 100 MCG/2 ML VIAL ONE (15:18)
[2023-12-20] MEDS ORDERED: MIDAZOLAM HCL 1 MG/ML 2ML VIAL ONE (15:18)
[2023-12-20] MEDS ORDERED: LIDOCAINE 2% 2 ML VIAL/AMP(20MG/ML) INFIL ONE ×2 (15:18)
[2023-12-20] MEDS ORDERED: PROPOFOL IV EMULSION 10 MG/ML 20 ML VIAL IV ONE (15:18)
--- NOTE | 2023-12-20 15:39 | History & Physical Bridge Note ---
Date of Service December 20, 2023 History & Physical Bridge Note I have examined the patient, reviewed the History & Physical and in the interval since the performance of the History & Physical I have noted the following changes of clinical significance: no changes noted
[2023-12-20] MEDS: ceFAZolin 2000MG 2,000 MG/15 ML SYR IV ONE (15:51)
[2023-12-20] MEDS ORDERED: KETOROLAC 30 MG/ML VIAL ONE (16:13)
--- NOTE | 2023-12-20 16:38 | Operative Report ---
PG Post Operative Report Pre & Post Diagnosis Operation Date: 12/20/23 09:30 Pre-Op Diagnosis: (1) Calculus, ureteral (2) Hydronephrosis, right Post-Op Diagnosis: (1) Calculus, ureteral (2) Hydronephrosis, right I identified the patient and participated in the time-out.: Yes Procedure Operation Date: 12/20/23 09:30 Actual Procedures p Cystoscopy, Right Stent Placement, Right Ureteroscopy with Basket Stone Extraction(Not Applicable) - Toribio Wyatt MD Surgeon Toribio Wyatt MD Consulting Technical Manager none Estimated Blood Loss 0 Findings Consistent with Post-Op Diagnosis Specimens Stone for chemical analysis Description of Procedure The patient was identified in the preoperative holding area, appropriate informed consents were reviewed and completed and the patient was transferred to the operative suite. Upon arrival, appropriate antibiotics and anesthesia were administered and the patient was placed in dorsal lithotomy position and prepped and draped in sterile fashion. To be in the case I passed a 21 Maldivian cystoscope with 30 degree lens and visual reducing machine operator peer inspection revealed a healthy-appearing bladder but there was some landing of the distal right ureter with mild erythema. Both orifices were in orthotopic positions. The remainder the bladder was unremarkable. I turned my attention to the right UO and cannulated with a sensor wire. Immediately after the wire past the stone there was a discharge of old urine. Wire advanced the kidney without difficulty and I then advanced a semirigid ureteroscope into the ureter alongside the wire. I encountered a stone approximately 4 to 5 mm above the UO. This was around the stone and after turning it to position I was able to grasp with the basket and extracted without difficulty. I did advance the scope back into the ureter and confirmed that there were no other distal stones. I proceeded to place a 6 Maldivian by 24 cm double-J stent with good curl in the kidney as well as the bladder. A string was left attached to the distal aspect of the stent. I emptied her bladder and concluded the case. She was reversed of anesthesia and taken to the recovery room in stable condition peer there were no complications. I attest to the content of the Intraoperative Record and any orders documented therein. Any exceptions are noted below.
--- NOTE | 2023-12-20 17:00 | Anesthesiology Progress Note ---
Date of Service December 20, 2023 Anesthesia Post Procedure Vital Signs Vital Signs: Temp Pulse Pulse Pulse Resp BP BP 12/20/23 16:55 36.6 C 73 18 99/54 L 12/20/23 16:45 66 17 98/56 L 12/20/23 16:35 66 17 100/57 L 12/20/23 16:27 36.5 C 69 16 96/58 L 12/20/23 14:30 36.6 C 76 16 119/80 12/20/23 14:17 36.4 C L 74 16 109/72 12/20/23 11:18 36.6 C 72 14 108/70 12/20/23 07:35 36.7 C 66 14 101/70 12/20/23 00:00 36.8 C 66 18 113/68 12/20/23 00:00 36.8 C 66 18 113/68 12/19/23 23:47 37.0 C 12/19/23 22:00 70 18 98/53 L 12/19/23 20:00 76 18 12/19/23 18:55 71 18 148/94 H Pulse Ox O2 Del Method 12/20/23 16:55 98 Room Air 12/20/23 16:45 99 Room Air 12/20/23 16:35 98 Room Air 12/20/23 16:27 98 Room Air 12/20/23 14:30 100 Room Air 12/20/23 14:17 98 Room Air 12/20/23 11:18 98 Room Air 12/20/23 07:35 99 Room Air 12/20/23 00:00 99 Room Air 12/20/23 00:00 99 Room Air 12/19/23 23:47 Room Air 12/19/23 22:00 99 Room Air 12/19/23 20:00 100 Room Air 12/19/23 18:55 100 Room Air Pain Intensity Right Back: Pain Intensity: 4 Transfer of Care Handoff Completed per policy Notes Mental Status: alert / awake / arousable Patient Amnestic to Procedure: Yes Nausea / Vomiting: adequately controlled Pain: adequately controlled Airway Patency, RR, SpO2: stable & adequate BP & HR: stable & adequate Hydration State: stable & adequate Anesthetic Complications: no major complications apparent
[2023-12-20 17:25] VITALS: RESP 16
[2023-12-20] MEDS: CHECK SCOPOLAMINE PATCH PLACEMENT SCH (17:30)
--- NOTE | 2023-12-20 17:46 | Discharge Summary ---
Discharge Summary Date of Service December 20, 2023 Principal Dx & Hospital Course #1 = Principal Diagnosis (1) Calculus, ureteral: 17yo female with recently diagnosed renal stone, ongoing nausea with inability to take her PO medications returns with ongoing flank pain. Noted to have multiple renal calculi measuring up to 0.7cm. -urology consulted, cystoscopy performed 12/[address] Mclaughlin plan to return to office 12/20 for stent removal. -Flomax 0.4mg PO daily -zofran prn nausea/vomiting -Tylenol and oxycodone for pain. Plan Discussed discharge with parents at bedside. Admission HPI Per Admitting Provider Abena Anthony is a 17yo female with no significant past medical surgery presenting with right flank pain. Patient was seen in the ER on 12/16/23 and found to have a 4mm right lower ureteral calculus. She was discharged from the ER with instruction to take Ibuprofen or Tylenol PRN as well as Oxycodone and Flomax. Patient has had significant nausea since returning home from the ER with multiple episodes of vomiting. She has been unable to take her oral medications. Patient with ongoing right flank pain as well as ongoing nausea and chills. She also reports some decreased UOP. Discharge Exam Constitutional WD/WN, vitals as above Eyes PERRL, conjunctivae normal, anicteric sclerae Respiratory breathing unlabored Cardiovascular well perfused Psychiatric A+Ox3, euthymic affect Discharge Plan Discharge Items Patient Disposition: Home - Self-Care Reason For Visit: RENAL STONE Discharge Diagnosis: kidney stones Activity: Resume your previous activity Lifting: Gradually increase as tolerated Bathing: No limitations Sexual Activity: When tolerated Exercise/Sports: Gradually increase as tolerated Driving/Machine Use: Resume 1 day after discharge Non-emergency contact: Urologist Call non-emergency contact if: you have any medication questions, your pain is concerning for you, you have a fever and your temperature is above 101.5 Follow-up/Referrals: [place] [Primary Care Provider] - Diet: Regular Addtl Attending Provider Instructions: Is normal to have some burning and blood within your urine for the first several days after procedure of this nature. It is also normal to have some pain on your flank when urinating. You will likely experience urinary urgency and frequency while the stent is in place. There is a black string attached to the end of the stent and it is taped to your thigh, this string will be used to remove your stent in the office tomorrow. PLEASE COME TO DR. MCLAUGHLIN'S OFFICE TOMORROW (12/20) AT 1pm FOR STENT REMOVAL. THE OFFICE ADDRESS IS [address] [place] [address] [place] [address] Pending Studies at Discharge: No Stand-Alone Forms: My [facility], Smoking Cessation Medications and DC Order Prescriptions: New ciprofloxacin HCl [Cipro] 500 mg tablet 500 mg PO BID Qty: 6 0RF Continued tamsulosin [Flomax] 0.4 mg capsule 0.4 mg PO DAILY Qty: 10 0RF ondansetron 4 mg tablet,disintegrating 4 mg PO Q6H PRN (Reason: nausea and vomiting) Qty: 15 0RF oxycodone 5 mg tablet 5 mg PO Q6H PRN (Reason: pain) Qty: 10 0RF Rx Instructions: Initial Treatment Discharge Orders: Discharge Order (Routine); Ordered 12/20/23 Ordered By: Toribio Mclaughlin Admission Data Admit Date/Time: 12/19/23 22:27 Attending Provider: Larry Church Admit Provider: Teresa Tierney Primary Care Provider: [facility] Other Providers: Jared Brown; Teresa Tierney Hospital Stay Data Consultations 12/19/23 20:49 Consult Urology Stat 12/19/23 21:07 ED Decision to Admit Stat 12/20/23 00:23 Consult Urology Routine Procedures Performed Operation Date: 12/20/23 09:30 Actual Procedures p Cystoscopy, Right Stent Placement, Right Ureteroscopy with Basket Stone Extraction(Not Applicable) - Toribio Mclaughlin MD Diagnostic Imagining Performed 12/19/23 16:11 US Renal Bladder [US renal/blad retro comp] Stat 12/20/23 FL KUB Routine Pending Results Patient Have Any Pending Studies at Discharge: No Discharge Instructions Given to Patient (Per Discharging Provider) Is normal to have some burning and blood within your urine for the first several days after procedure of this nature. It is also normal to have some pain on yo ur flank when urinating. You will likely experience urinary urgency and frequency while the stent is in place. There is a black string attached to the end of the stent and it is taped to your thigh, this string will be used to remove your stent in the office tomorrow. PLEASE COME TO DR. MCLAUHGLIN'S OFFICE TOMORROW (12/20) AT 1pm FOR STENT REMOVAL. THE OFFICE ADDRESS IS [address] [place] [address] [place] [address] Total Time Total Time Spent Total Time Spent (In Minutes): 35 Total Time Includes: Examination of the Patient, Discharge Planning, Medication Reconciliation and Communication With Other Providers Coding Level of Care Code 47244 INP/OBS DISCH >30 MIN Diagnoses Calculus, ureteral N20.1
[2023-12-20 18:19] VITALS: PULSE 81; TEMP 97.8; O2SAT 98
[2023-12-20 18:39] VITALS: BP 98/53
[2023-12-20] MEDS ORDERED: TAMSULOSIN HCL 0.4 MG CAP PO SCH (21:00)
--- NOTE | 2023-12-21 07:59 | Fluoroscopy Report ---
[facility] CLINICAL HISTORY: RIGHT CYSTO COMPARISON STUDY: CT of the abdomen and pelvis December 16, 2023. Renal ultrasound December 19, 2023. FLUOROSCOPY TIME: 6 seconds. Ka,r: 0.22 mGy FLUOROSCOPIC IMAGES: 1 FINDINGS: Fluoroscopy was provided during right retrograde exam and right ureteral stent placement. P roximal aspect of stent projects over the right collecting system. IMPRESSION: Fluoroscopy provided during right retrograde exam with ureteral stent placement. ACT 112: Negative or not required by law. Electronically signed by: Sreekanth Weston M.D. 12/21/2023 7:58 AM
== END 2023-12-20 18:58 | disposition home or self-care (01) | DRG 661 ==
LOC: ED 16:07 → SUATTDRO 22:27 → 3N 22:27